=== PATIENT | female | born 1995 | race Caucasian/White ===

== ENCOUNTER → 2017-07-22 | Outpatient (CLI) | payer BC, OTHER ==
[2017-07-22 13:51] LABS: CH 30.1; HCT 33.3 % (34.0-46.0); HDW 2.61; HGB 11.3 gm/dL (11.4-16.0); MCH 30.1 pg (25.0-35.0); MCHC 33.8 g/dL (31.0-37.0); Mean Platelet Volume 8.6; RBC 3.74 m/uL (3.80-5.40); RDW 14.1 % (11.5-15.5)
[2017-07-22 14:06] LABS: Non-African American GFR(MDRD) >60 (>60 ml/min/1.73 sqM)
[2017-07-22 20:52] LABS: Treponemal Ab Non-Reactive (Non-Reactive)
== END | disposition home or self-care (01) ==
LOC: LABWHC1 12:13
PROVIDERS: ATTEND Obstetrics & Gynecology
DX: O26.813 Pregnancy related exhaustion and fatigue, third trimester (principal); Z3A.00 Weeks of gestation of pregnancy not specified
CPT/HCPCS: 36415; 82565; 82950; 85027; 86762; 86780; 86850; 86900; 86901; 87340; 87390

== ENCOUNTER 2017-08-28 06:15 | Inpatient (IN) | payer BC, OTHER ==
--- NOTE | 2017-08-27 19:41 | P.HPOB ---
History of Present Illness H&P Date: 08/27/17 Chief Complaint: Induction of labor This is a 22-year-old female 6 para 3 with an estimated date of confinement of 08/23/2017, estimated gestational age of 40-4/7 weeks, who presents to labor and delivery for induction of labor. She admits to good movement. She has been feeling irregular contractions. course was complicated by a gap in care from 26 weeks to 34 weeks. She did not start care with me until approximately 21 weeks. In addition the patient stated that she did do her labs at [facility] however they have no record of her doing them there. I finally had her do them in our office so that we could get them done at approximately 35 weeks. I was notified by the labor and delivery community development manager today that the [facility] department called and said that she has been doing crystal meth. health services rn has been notified and a drug screen will be obtained on admission. labs: Group B streptococcus-negative Hepatitis B surface antigen-negative on reactive HIV-nonreactive Rubella-immune Syphilis antibody-negative nonreactive 1 hour Glucola-145 Hemoglobin-11.3 Blood type-A+ Antibody screen-negative Three-hour Glucola-within normal limits GC/chlamydia-negative Obstetrical history: . History of 2 terminations of . History of 3 vaginal deliveries. Gynecologic history: No history of sexual transmitted diseases Social history: She is single. She is not currently working. Review of Systems Constitutional: Reports as per HPI, Denies chills, Denies fever Eyes: denies blurred vision, denies pain Ears, nose, mouth and throat: Denies headache, Denies sore throat Cardiovascular: Denies chest pain, Denies shortness of breath Respiratory: Denies cough Gastrointestinal: Reports abdominal pain (Irregular contractions) Genitourinary: Reports pelvic pain, Reports Musculoskeletal: Reports low back pain Integumentary: Denies pruritus, Denies rash Neurological: Denies numbness, Denies weakness Psychiatric: Reports anxiety, Reports depression Past Medical History Additional Past Medical History / Comment(s): Kidney stones, gallstones History of Any Multi-Drug Resistant Organisms: None Reported Past Surgical History: Cholecystectomy Additional Past Surgical History / Comment(s): Lithotripsy Past Anesthesia/Blood Transfusion Reactions: No Reported Reaction Past Psychological History: No Psychological Hx Reported Smoking Status: Current some day smoker Past Alcohol Use History: Occasional Past Drug Use History: None Reported Additional Drug Use History / Comment(s): smokes half pack cigarettes per day; Per [facility] Department, she has been using Crystal Meth. - Past Family History Sister(s) Family Medical History: No Reported History Additional Family Medical History / Comment(s): Heart murmur and heart valve stenosis of the mitral valve Medications and Allergies Home Medications Medication Instructions Recorded Confirmed Type Amoxic-Pot Clav 500-125 mg 1 tab PO Q12HR #10 tab 07/07/16 Rx [Augmentin 500-125 mg] HYDROcodone/APAP 7.5-325MG [[place] 1 tab PO Q4H PRN #30 tab 07/07/16 Rx 7.5-325] Allergies Allergy/AdvReac Type Severity Reaction Status Date / Time codeine Allergy Anaphylaxis Verified 07/05/16 23:52 Exam Osteopathic Statement: *. No significant issues noted on an osteopathic structural exam other than those noted in the History and Physical/Consult. Assessment and Plan (1) 40 weeks gestation of Status: Acute Code(s): Z3A.40 - 40 WEEKS GESTATION OF SNOMED Code( s): 19101435 Plan: Proceed with oxytocin induction of labor. Expectant management. Epidural anesthesia if desired. We will obtain drug screen on admission and will consult social media sr strategy manager.
[2017-08-28] MEDS ORDERED: CARBOPROST TROMETHAMINE 250 MCG/ML 1 ML AMP IM PRN (06:33)
[2017-08-28] MEDS ORDERED: OXYTOCIN 10 UNIT/ML 1 ML VIAL IM PRN (06:33)
[2017-08-28] MEDS ORDERED: LIDOCAINE 1% (PF) 10 MG/ML (30 ML SDV) SQ PRN (06:33)
[2017-08-28] MEDS ORDERED: OXYTOCIN 20 UNITS/1000 ML NS 1,000 ML IV SCH ×2 (06:33→16:45)
[2017-08-28] MEDS ORDERED: LIDOCAINE 1% 20 ML VIAL (10MG/ML) FOR IV START INTRADERMA PRN (06:33)
[2017-08-28] MEDS ORDERED: TERBUTALINE 1 MG/ML VIAL SQ PRN (06:33)
[2017-08-28] MEDS ORDERED: METHYLERGONOVINE 0.2 MG/ML 1 ML AMP IM PRN (06:33)
[2017-08-28] MEDS: LACTATED RINGERS 1,000 ML IV SCH ×3 (06:42→12:36)
[2017-08-28 06:54] LABS: Basophils # (A) 0.1 k/uL (0-0.2); Basophils % (A) 1 %; Eosinophils # (A) 0.1 k/uL (0-0.7); Eosinophils % (A) 1 %; HCT 34.1 % (34.0-46.0); HGB 11.7 gm/dL (11.4-16.0); Lymphocytes # (A) 1.6 k/uL (1.0-4.8); Lymphocytes % (A) 14 %; MCHC 34.2 g/dL (31.0-37.0); MCV 87.8 fL (80.0-100.0); Monocytes # (A) 0.7 k/uL (0-1.0); Monocytes % (A) 6 %; Neutrophils # (A) 8.4 k/uL (1.3-7.7); Neutrophils % (A) 76 %; Platelet Count 210 k/uL (150-450); RBC 3.88 m/uL (3.80-5.40); RDW 14.8 % (11.5-15.5)
[2017-08-28 07:09] LABS: Amphetamine Screen,Urine Not Detected (NotDetected); Barbiturate Screen,Urine Not Detected (NotDetected); Benzodiazepines Screen,Urine Not Detected (NotDetected); Cocaine Screen,Urine Not Detected (NotDetected); Methadone Screen, Urine Not Detected (NotDetected); Opiate Screen,Urine Not Detected (NotDetected); Oxycodone Screen, Urine Not Detected (NotDetected); Phencyclidine Screen,Urine Not Detected (NotDetected); Tricyclic Antidepressant,Urine Not Detected (NotDetected); Urn Cannabinoid Scrn Not Detected (NotDetected)
[2017-08-28] MEDS: BUTORPHANOL 1 MG/ML 1 ML VIAL IV PRN ×2 (09:02→10:59)
[2017-08-28] MEDS ORDERED: BUPIVACAINE (PF) 0.25% 30 ML VIAL ONE (12:10)
[2017-08-28] MEDS ORDERED: SODIUM CHLORIDE 0.9% 100 ML BAG ONE (12:10)
[2017-08-28] MEDS ORDERED: fentaNYL (PF) 50 MCG/ML 5 ML AMP ONE (12:10)
[2017-08-28] MEDS ORDERED: BENZOCAINE/MENTHOL SPRAY 1 GM/SPRAY AEROSOL TOPICAL PRN (16:43)
[2017-08-28] MEDS ORDERED: ZOLPIDEM 5 MG TAB PO PRN (16:43)
[2017-08-28] MEDS ORDERED: WITCH HAZEL 1 EACH MED..PAD TOPICAL PRN (16:43)
[2017-08-28] MEDS ORDERED: diphenhydrAMINE 50 MG CAP PO PRN (16:43)
[2017-08-28] MEDS ORDERED: diphenhydrAMINE 25 MG CAP PO PRN (16:43)
[2017-08-28] MEDS ORDERED: diphenhydrAMINE 50 MG/ML 1 ML VIAL IVP PRN ×2 (16:43)
[2017-08-28] MEDS ORDERED: HYDROCORTISONE 2.5% RECTAL CREAM 30 GM TUBE RECTAL PRN (16:43)
[2017-08-28] MEDS ORDERED: LANOLIN CREAM 5 GM TUBE TOPICAL PRN (16:43)
[2017-08-28] MEDS ORDERED: SIMETHICONE 80 MG CHEWABLE PO PRN (16:43)
--- NOTE | 2017-08-28 17:31 | P.PROBDLV ---
Vaginal Delivery Note - . Vaginal Delivery Note: The patient progressed to complete dilation after artificial rupture membranes with thin meconium noted and epidural anesthesia. Once reaching complete dilation, she began pushing. 's head came to a crown and then delivered across the perineum in a right occiput anterior lie. Immediately after delivery of the head, a large amount of blood clot and port wine colored fluid was noted. Nose and mouth were bulb suctioned at the perineum. With one further push, the remainder the body delivered and was placed on mother's abdomen. Nose and mouth were bulb suctioned again. Cord was clamped and cut and infant was taken to warmer for evaluation. Nuchal cord times one was also reduced around the infant with delivery. A viable male infant was noted with scores at 8 at 1 minute and 9 at 5 minutes and infant weight of 8 lbs. 0 oz. Placenta delivered shortly thereafter, intact, with a three-vessel cord. Placenta was inspected and noted to have multiple calcifications and did have a slight odor. No specific areas of abruption were noted on the placenta however there were a significant amount of blood clots with delivery. Inspection of the perineum revealed no perineal lacerations. Estimated blood loss is approximately 200 mL's. Both mother and are in stable condition.
[2017-08-28] MEDS: IBUPROFEN 600 MG TAB PO PRN (19:33)
[2017-08-28] MEDS: SENNOSIDES-DOCUSATE SODIUM 1 EACH TAB PO SCH (21:27)
[2017-08-29] MEDS: IBUPROFEN 600 MG TAB PO PRN ×3 (02:39→16:58)
[2017-08-29] MEDS: ACETAMINOPHEN TAB 325 MG TAB PO PRN ×2 (05:54→14:10)
--- NOTE | 2017-08-29 08:26 | P.DS ---
Providers Date of admission: 08/28/17 06:20 Expected date of discharge: 08/29/17 Attending physician: Blanca Garzon Primary care physician: Stated None - Discharge Diagnosis(es) (1) 40 weeks gestation of Current Visit: Yes Status: Acute Hospital Course: This is a 22-year-old female 6 para 3 at 40-5/7 weeks who presented for induction of labor. She underwent oxytocin induction of labor and delivered vaginally a viable male with scores of 8 at 1 minute and 9 at 5 minutes and infant weight of 8 lbs. 0 oz. Nuchal cord times one was noted and also a partial abruption was noted with delivery. Her course has been uncomplicated. Lochia is decreasing. Pain is fairly well controlled with ibuprofen and Tylenol. She is breast-feeding. Vital signs are stable. Abdomen is soft with fundus firm and nontender. Extremities show negative Homans. Impression is status post vaginal delivery day #1. Plan is to discharge home later today as long as the baby can go home. She will be given a prescription for ibuprofen and a breast pump. Routine instructions are given. She is advised to follow up in the office in 6 weeks for check. She did deny using any crystal meth or any drugs at all when I confronted her about the accusation of her using crystal meth throughout the . Her urine drug screen was negative. Procedures: Oxytocin induction of labor Spontaneous vaginal delivery of a viable male on 08/28/2017 Patient Condition at Discharge: Stable Plan - Discharge Summary New Discharge Prescriptions: New Ibuprofen [Motrin] 600 mg PO Q6HR PRN #60 tab PRN Reason: Mild Pain Or Fever >= 100.5 Discharge Medication List Ibuprofen [Motrin] 600 mg PO Q6HR PRN #60 tab 08/29/17 [Rx] Follow up Appointment(s)/Referral(s): Blanca Garzon DO [Doctor of Osteopathic Medicine] - 6 Weeks Activity/Diet/Wound Care/Special Instructions: Instructions 1. Do not begin any exercise program for 3 weeks. 2. Do not resume sexual relations for 3 weeks or longer if uncomfortable. 3. You may take tub baths or showers at any time. 4. You may use tampons if desired after 3 weeks. 5. Keep the area of episiotomy (stitches) clean and dry. 6. If you are not nursing, wear a good fitting, supportive bra during the day and limit fluid intake for at least 1 week to prevent breast engorgement. 7. Call the office, [phone], within the next week to make appointment for your 6 week checkup if it has not already been made. 8. Report any of the following occurrences to the doctor promptly: a. Heavy, excessive bleeding b. Chills, fever c. Burning or frequency of urination d. Pain or redness and breasts if nursing e. Increasing pain or swelling in episiotomy (stitches). In addition to the above instructions, the following additional should be followed: 1. No heavy lifting or straining (exercising) until after 6 week checkup. 2. Keep abdominal incision clean and dry: You may wear a dressing if more comfortable. 3. Make office appointment for 10 days after going home or as instructed by her doctor. Discharge Disposition: HOME SELF-CARE
[2017-08-29] MEDS: SENNOSIDES-DOCUSATE SODIUM 1 EACH TAB PO SCH (09:08)
[2017-08-29 09:18] VITALS: TEMP 98.2
[2017-08-29 16:16] VITALS: BP 134/87; PULSE 74; RESP 17
== END 2017-08-29 17:30 | disposition home or self-care (01) | DRG 775 ==
LOC: 4FBP 06:20
PROVIDERS: ADMIT Obstetrics & Gynecology; ATTEND Obstetrics & Gynecology
PROC: 00HU33Z Insertion of Infusion Device into Spinal Canal, Percutaneous Approach (ICD-10-PCS; principal; 2017-08-28)
PROC: 3E0R3BZ Introduction of Anesthetic Agent into Spinal Canal, Percutaneous Approach (ICD-10-PCS; principal; 2017-08-28)
PROC: 3E033VJ Introduction of Other Hormone into Peripheral Vein, Percutaneous Approach (ICD-10-PCS; principal; 2017-08-28)
PROC: 10E0XZZ Delivery of Products of Conception, External Approach (ICD-10-PCS; principal; 2017-08-28)
PROC: 3E0R3NZ Introduction of Analgesics, Hypnotics, Sedatives into Spinal Canal, Percutaneous Approach (ICD-10-PCS; principal; 2017-08-28)
PROC: 10907ZC Drainage of Amniotic Fluid, Therapeutic from Products of Conception, Via Natural or Artificial Opening (ICD-10-PCS; principal; 2017-08-28)
DX: O48.0 Post-term pregnancy (principal); F17.200 Nicotine dependence, unspecified, uncomplicated; Z37.0 Single live birth; O99.334 Smoking (tobacco) complicating childbirth; Z3A.40 40 weeks gestation of pregnancy; Z88.5 Allergy status to narcotic agent; O69.81X0 Labor and delivery complicated by cord around neck, without compression, not applicable or unspecified; O77.0 Labor and delivery complicated by meconium in amniotic fluid
CPT/HCPCS: 80306; 85025; 88307